=== PATIENT | male | born 1950 | race Two or more races ===

== ENCOUNTER → 2020-07-14 | Outpatient (CLI) | payer OTHER | END | disposition home or self-care (01) | LOC: HBOWC 09:54 | PROVIDERS: ATTEND Podiatrist | DX: E11.622 Type 2 diabetes mellitus with other skin ulcer (principal); L97.812 Non-pressure chronic ulcer of other part of right lower leg with fat layer exposed; S80.821D Blister (nonthermal), right lower leg, subsequent encounter; E11.51 Type 2 diabetes mellitus with diabetic peripheral angiopathy without gangrene; I25.2 Old myocardial infarction; I48.91 Unspecified atrial fibrillation; J44.9 Chronic obstructive pulmonary disease, unspecified; I50.9 Heart failure, unspecified; F17.200 Nicotine dependence, unspecified, uncomplicated; Z79.4 Long term (current) use of insulin; Z89.612 Acquired absence of left leg above knee; X58.XXXD Exposure to other specified factors, subsequent encounter | CPT/HCPCS: 11042; G0463 ==

== ENCOUNTER → 2020-07-21 | Outpatient (CLI) | payer OTHER | END | disposition home or self-care (01) | LOC: HBOWC 10:37 | PROVIDERS: ATTEND Podiatrist | DX: E11.622 Type 2 diabetes mellitus with other skin ulcer (principal); L97.812 Non-pressure chronic ulcer of other part of right lower leg with fat layer exposed; E11.51 Type 2 diabetes mellitus with diabetic peripheral angiopathy without gangrene; I25.2 Old myocardial infarction; I48.91 Unspecified atrial fibrillation; J44.9 Chronic obstructive pulmonary disease, unspecified; I50.9 Heart failure, unspecified; N40.0 Benign prostatic hyperplasia without lower urinary tract symptoms; F17.200 Nicotine dependence, unspecified, uncomplicated; Z79.4 Long term (current) use of insulin; Z89.612 Acquired absence of left leg above knee | CPT/HCPCS: 11042 ==

== ENCOUNTER → 2020-07-28 | Outpatient (CLI) | payer OTHER | END | disposition home or self-care (01) | LOC: HBOWC 11:25 | PROVIDERS: ATTEND Podiatrist | DX: S80.821D Blister (nonthermal), right lower leg, subsequent encounter (principal); E11.51 Type 2 diabetes mellitus with diabetic peripheral angiopathy without gangrene; I48.91 Unspecified atrial fibrillation; I50.9 Heart failure, unspecified; N40.0 Benign prostatic hyperplasia without lower urinary tract symptoms; J44.9 Chronic obstructive pulmonary disease, unspecified; I25.2 Old myocardial infarction; F17.290 Nicotine dependence, other tobacco product, uncomplicated; Z89.612 Acquired absence of left leg above knee; X58.XXXD Exposure to other specified factors, subsequent encounter | CPT/HCPCS: G0463; Z7500 ==